=== PATIENT | female | born 2000 | race Caucasian/White ===

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

== ENCOUNTER 2024-04-13 14:09 | Emergency (ER) | payer BC, OTHER ==
[2024-04-13 14:18] VITALS: BP 106/67; PULSE 77; RESP 20; TEMP 97.5
[2024-04-13] MEDS ORDERED: DIPHTH,PERTUSS(ACELL),TET 0.5 ML DISP.SYRIN IM ONE ×2 (16:26→16:28)
[2024-04-13] MEDS ORDERED: ACETAMINOPHEN 500 MG TABLET (FP) ONE (16:27)
[2024-04-13] MEDS ORDERED: AMOX TR/POT CLAV 875MG/125MG TABLETS (FP) ONE (16:27)
[2024-04-13] MEDS: ACETAMINOPHEN 500 MG TABLET (FP) PO ONE (16:36)
[2024-04-13] MEDS: AMOX TR/POT CLAV 875MG/125MG TABLETS (FP) PO ONE (16:37)
[2024-04-13] MEDS: DIPHTH,PERTUSS(ACELL),TET 0.5 ML DISP.SYRIN IM ONE (16:37)
== END 2024-04-13 17:57 | disposition left against medical advice (07) ==
LOC: JER 14:09
PROC: 3E0234Z Introduction of Serum, Toxoid and Vaccine into Muscle, Percutaneous Approach (ICD-10-PCS; principal; 2024-04-13)
DX: S61.451A Open bite of right hand, initial encounter (principal); W54.0XXA Bitten by dog, initial encounter; Z23 Encounter for immunization
CPT/HCPCS: 73130-TC-RT-FY; 90715; 99284-25